=== PATIENT | male | born 1975 | race Caucasian/White ===

== ENCOUNTER 2021-07-30 05:35 | Outpatient (CLI) | payer BC, SELFPAY ==
--- NOTE | 2021-08-04 16:44 | WPDHOMESLEEP ---
Sleep Study - Home Unattended Date of Study: 07/30/21 Ordering Provider: Deejay Price MD Interpreting Provider: Maryam Zhang, DO Home Sleep Study Type: Apnea Link Air Height: 1.78 m Weight: 95.254 kg Body Mass Index: 30.1 Neck Circumference (inches): 16.5 [place]: 9 Reason for Sleep Study Snoring, Unrefreshing sleep, daytime hypersomnia Sleep History The patient is a 46-year-old male with seasonal allergies and GERD that had a sleep study ordered by his primary care for evaluation of sleep apnea. The patient works in [employer]. The patient denies awakening from sleep short of breath. He frequently awakens at night with heartburn, belching or cough. He constantly snores loud enough that others complain. He occasionally has trouble sleeping when he has a cold. He frequently wakes up gasping for air throughout the night. He frequently has breathing problems at night observed by himself or others. He rarely sweats excessively at night. He rarely has heart palpitations or irregular heartbeats during the night. He rarely falls asleep during the day but never while driving. He denies sleep paralysis, cataplexy and hypnagogic / hypnopompic hallucinations. He occasionally has trouble at school or work due to sleepiness. He rarely has nightmares. He rarely remembers his dreams. He frequently has thoughts racing through his mind. He rarely feels sad or depressed. He occasionally has anxiety. He occasionally has muscular tension. He occasionally notices parts of his body jerk. He rarely kicks during the night. He occasionally has crawling and aching feelings in his legs. He rarely has leg pain during the night. He rarely grinds his teeth during sleep rarely awakens with a morning jaw pain. He is occasionally bothered by pain during the day but rarely awakened by pain during the night. He occasionally wakes up feeling stiff in the morning. He rarely wakes up with sore achy muscles. He occasionally wakes up with pain in the neck, spine or other joints. He goes to bed at 10:00 p.m. on both weekdays and weekends. It takes him a few minutes to fall asleep. He wakes up 2-3 times throughout the night to use the restroom, sit up due to heartburn and wait to fall asleep. It can take him up to 30 minutes to fall back asleep. He wakes up at 5:30 a.m. on weekdays and 9:00 a.m. on the weekends. He typically gets 6-7 hours of sleep per night. He will stay in bed for 5-10 minutes after waking up in the morning. He currently lives with his and 2 children. He does not consume any caffeinated beverages within 2 hours of bedtime. He does not engage in physical exercise before bedtime. He will watch television before falling asleep. He does not take naps in the afternoon or the evening. He drinks 3-4 caffeinated beverages per day. He drinks 1-2 alcoholic beverages per day. He denies tobacco and recreational drug use. FORMERLY [facility] Past Medical History Medical History Anxiety BMI 31.0-31.9,adult BMI 32.0-32.9,adult Body mass index [BMI] 27.0-27.9, adult (03/11/17) Dietary counseling and surveillance (06/23/18) Encounter for wellness examination in adult Essential (primary) hypertension (03/11/17) Exposure to the flu Hair loss Lipid screening Loud snoring Physical exam Screening for thyroid disorder Snoring Family History Family History Father Hypertension Hyperlipidemia Skin cancer Mother Patient's mother is in good health Social History Social History Second hand tobacco smoke exposure: Yes Alcohol intake: current Drinks per week: 14 Alcohol use details: beer Substance use: never Substance use type: does not use 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
[2021-08-04 16:58] VITALS: BMI 30.1
== END 2021-07-31 16:01 | disposition home or self-care (01) ==
LOC: ANHCSM 05:35
PROVIDERS: PCP Family Medicine; Visit Provider Family Medicine
DX: G47.00 Insomnia, unspecified (principal); G47.33 Obstructive sleep apnea (adult) (pediatric)
CPT/HCPCS: 95806

== ENCOUNTER 2022-02-27 12:24 | Emergency (ER) | payer BC, SELFPAY ==
[2022-02-27 13:25] VITALS: BP 133/90; PULSE 75; RESP 16; TEMP 36.7; O2SAT 98
--- NOTE | 2022-02-27 13:49 | ED.URI ---
HPI - URI/Sore Throat General Chief Complaint: Upper Respiratory Infection Stated Complaint: fatigue Time Seen by Provider: 02/27/22 14:23 Source: patient and RN notes reviewed Mode of arrival: ambulatory Limitations: no limitations History of Present Illness HPI Narrative: 47-year-old male presents with concern for cough, progressing into his chest. Reports symptoms started 1 week ago with body aches, fatigue, fever, nasal drainage and cough, sinus pressure. He reports he has been taking [id number] medications without relief of his symptoms and his cough seems to be worsening. He reports aching at the base of his chest. MD elicited complaint: cough and nasal congestion Related Data Allergies Allergy/AdvReac Type Severity Reaction Status Date / Time No Known Allergies Allergy Verified 02/27/22 13:55 Review of Systems Review of Systems: CONSTITUTIONAL: Reports malaise. Denies chills, sweats, or fever. EYES: Denies visual changes, redness, or discharge. ENT: Reports rhinorrhea, congestion. Denies sinus pain, otalgia and sore throat. CARDIOVASCULAR: Denies chest pain, palpitations, or edema. RESPIRATORY: Reports cough, chest congestion. Denies dyspnea. GASTROINTESTINAL: Denies abdominal pain, nausea, vomiting, diarrhea SKIN: Denies rash or itching. MUSCULOSKELETAL: Reports myalgia. NEUROLOGIC: Denies headache. All systems reviewed & are unremarkable except as noted in HPI and below PMFSH Past Medical History Medical History Anxiety BMI 31.0-31.9,adult BMI 32.0-32.9,adult Body mass index [BMI] 27.0-27.9, adult (03/11/17) Dietary counseling and surveillance (06/23/18) Encounter for wellness examination in adult Essential (primary) hypertension (03/11/17) Exposure to the flu Hair loss Lipid screening Loud snoring Physical exam Screening for thyroid disorder Snoring Family History Family History Father Hypertension Hyperlipidemia Skin cancer Mother Patient's mother is in good health Social History Social History Smoking status: Never smoker Second hand tobacco smoke exposure: Yes Alcohol intake: current Drinks per week: 14 Alcohol use details: beer Substance use: never Substance use type: does not use 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 There is no relevant family history pertinent to the presenting complaint Exam Narrative: GENERAL: Nontoxic-appearing and in no acute distress. HEAD: Normocephalic EYES: PERRLA, conjunctivae clear ENT: Nares clear, turbinates edematous and erythematous, clear discharge. Mucous membranes moist. TM pearly subramanian with sharp light reflex bilaterally; no tragal tenderness. Oropharynx not erythematous without lesions. Tonsils not enlarged and without exudate, no drooling, no hoarseness, no trismus, uvula midline. NECK: Supple. No lymphadenopathy CHEST: Clear to auscultation, breath sounds equal. No wheezing, rhonchi, rales, or stridor. No respiratory distress, speaks in full sentences. HEART: Regular rate and rhythm. No murmur heard. SKIN: Warm, dry, no rash. NEURO: Alert and oriented x3. PSYCH: Normal mood and affect Course Course Emergency Course: Patient is aware of diagnosis, understands and agrees to treatment plan. Anticipatory guidance given. Patient agrees to follow-up as directed and is aware of reasons to seek care at the emergency department. Portions of this record may have been created with voice recognition software Level of Care: Express Care Visit Vital Signs Vital signs: Vital Signs Temperature 98.1 F 02/27/22 13:25 Pulse Rate 75 02/27/22 13:25 Respiratory Rate 16 02/27
== END 2022-02-27 14:38 | disposition home or self-care (01) ==
PROVIDERS: Emergency Provider Nurse Practitioner; PCP Family Medicine
DX: J06.9 Acute upper respiratory infection, unspecified (principal); I10 Essential (primary) hypertension
CPT/HCPCS: 87804; 99213; G0463

== ENCOUNTER 2022-05-29 13:45 | Outpatient (CLI) | payer BC, SELFPAY ==
--- NOTE | ~2022-05-29 | US_ITS ---
US breast LT limited DATE: 05/29/2022 14:11 INDICATION: Left breast lump since January 2022 TECHNIQUE: Real-time and color flow imaging targeted to the left breast lump at 5:00 4 cm from nipple COMPARISON: None FINDINGS: 5:00 4 cm from nipple: There is a parallel circumscribed approximately 9.2 x 12.8 x 10.3 mm heterogen eous mixed isoechoic and hyperechoic lesion without internal vascularity posterior shadowing, most co nsistent with benign lipoma. IMPRESSION: BI-RADS Category 2: Benign; probable benign lipoma Reviewed, dictated and finalized at [facility]. Reviewed, dictated and finalized at [facility]. ER FIXER
== END 2022-05-29 13:46 | disposition home or self-care (01) ==
PROVIDERS: PCP Family Medicine; Visit Provider Nurse Practitioner Family
DX: N63.0 Unspecified lump in unspecified breast (principal); R92.8 Other abnormal and inconclusive findings on diagnostic imaging of breast
CPT/HCPCS: 76642

== ENCOUNTER 2025-03-13 07:58 | Outpatient (CLI) | payer BC, SELFPAY ==
--- NOTE | ~2025-03-13 | CT_ITS ---
EXAM/PROCEDURE: CT sinus wo con HISTORY: J32.9 - Chronic sinusitis, unspecified COMPARISON: None available. TECHNIQUE: Paranasal sinus CT FINDINGS: Moderately extensive opacification in both the ethmoid air cells, as well as mild diffuse mucoperiosteal thickening in the maxillary sinuses and to a lesser extent the frontal and sphenoid sinuses. Small air-fluid level present in the dependent portion of the right maxillary sinus. 1.3 cm possible mucocele or mucous retention cyst medial aspect of the inferior right maxillary sinus. At least partial occlusion of the ostiomeatal complexes bilaterally. Mild septal deviation to the left present. The turbinates appear within normal limits. The adjacent bones and soft tissues are unremarkable. Mastoid air cells and middle ear cavities are fully aerated. IMPRESSION: Pansinusitis with at least partial occlusion of both ostiomeatal complexes; air-fluid level in the right maxillary sinus may represent acute sinusitis. Reviewed, dictated and finalized at [facility]. [employer] IMPRESSION: Pansinusitis with at least partial occlusion of both ostiomeatal co mplexes; air-fluid level in the right maxillary sinus may represent acute sinus itis.
== END 2025-03-13 07:59 | disposition home or self-care (01) ==
PROVIDERS: PCP Family Medicine; Visit Provider Otolaryngology
DX: J32.9 Chronic sinusitis, unspecified (principal); R09.81 Nasal congestion; J34.89 Other specified disorders of nose and nasal sinuses; J34.2 Deviated nasal septum; J34.3 Hypertrophy of nasal turbinates
CPT/HCPCS: 70486